=== PATIENT | female | born 2005 ===

== ENCOUNTER 2023-10-15 21:41 | Emergency (ER) | payer MEDICAID, SELFPAY ==
[2023-10-15 22:07] VITALS: BP 112/68; PULSE 91; RESP 16; TEMP 36.6; O2SAT 97; BMI 22.7
--- NOTE | 2023-10-15 23:16 | PC.NURSE ---
pt took a home preg test and it was positive, pt now wants paper work to show she is for her own personal reasons. pt gave a scant amount of urine and refusing to give more urine at this time. pt states she will be back tomorrow. pt states she cant give anymore urine at this time. teaching on drinking more water that she had in her hand and running the water in the bathroom might help. pt upset rude and left.
== END 2023-10-15 23:45 | disposition left against medical advice (07) ==
PROVIDERS: Emergency Provider Emergency Medicine
DX: Z32.01 Encounter for pregnancy test, result positive (principal)
CPT/HCPCS: 99281; 99282

== ENCOUNTER 2023-10-17 08:16 | Emergency (ER) | payer MEDICAID, SELFPAY ==
[2023-10-17 08:18] VITALS: BP 112/71; PULSE 91; RESP 18; TEMP 37.2; O2SAT 98; BMI 21.1
--- NOTE | 2023-10-17 08:42 | ED_ITS ---
HPI - General Adult General Chief complaint: General Medical Stated complaint: test Time Seen by Provider: 10/17/23 08:41 Source: patient Mode of arrival: ambulatory Limitations: no limitations History of Present Illness HPI narrative: Patient is a 18-year-old female who presents emergency department requesting proof of testing. Reports her last menstrual period 09/16/2023. 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 She also is requesting a letter for proof of to provide for her food stamps. Currently she denies nausea, vomiting, abdominal pain, vaginal bleeding, abnormal vaginal discharge, dysuria, urinary frequency/urgency/hesitancy. Related Data Previous Rx's ?Medication ?Instructions ?Recorded doxylamine succinate 25 mg tablet 25 mg PO BEDTIME PRN nausea and 10/17/23 (Unisom (doxylamine)) vomiting #20 tabs vit 168-iron 27 mg-folic 1 cap PO DAILY #30 caps 10/17/23 acid 800 mcg-omega3 235 mg capsule (One-A-Day -1) pyridoxine (vitamin B6) 25 mg 25 mg PO TID #30 tabs 10/17/23 tablet Allergies Allergy/AdvReac Type Severity Reaction Status Date / Time No Known Allergies Allergy Verified 10/17/23 08:21 Review of Systems Review of Systems: Yes all other systems are reviewed and are negative PMFSH Past Medical History Attestation statement: The following information was validated with the patient. Source: old records reviewed Social History Social History Advance Directives: No Advance Directives Information Provided: No Do you have a plan to hurt others: No Plan Physical Exam ED Vital Signs: Vital Signs - 24 hr 10/17/23 08:18 Temperature 98.9 F Pulse Rate 91 Respiratory Rate 18 Blood Pressure 112/71 Pulse Oximetry 98 Oxygen Delivery Method Room Air BMI result Body Mass Index 21.1 Appearance: Alert.?Oriented to person, place and time. No acute distress.?Normal affect. Eyes: Pupils equal, round and reactive to light.? ENT: Pharynx normal.?? Neck: Normal inspection.? Neck supple.?? CVS: Heart sounds normal. Normal heart rate and rhythm.? Pulses normal.?? Respiratory: No respiratory distress.? Lung sounds clear to auscultation bilaterally?? Abdomen: Soft and non-tender. Normoactive bowel sounds. ? Skin: Skin warm and dry.? Normal skin color.? Extremities: No lower extremity edema.? Neuro: Moves all extremities spontaneously. Sensation intact bilaterally. Ambulates with normal steady gait. Medical Decision Making Medical Decision Making [facility] Narrative: Patient is a 18-year-old female G3 T0 L0, who presents to the emergency department today requesting proof of as per HPI. Urine t esting today is positive. Urinalysis without evidence of infection or microscopic hematuria. Her examination is benign and she is without physical complaints at this time to suggest complications from . Suspect 1st trimester , with the approximate gestational 4 weeks, estimated due date 06/22/2024 based on her LMP. Prescription for vitamin was sent to pharmacy in addition to pyridoxine and Unisom for use as needed with nausea/vomiting. Advised outpatient follow-up with a intermission coordinator provider. Reviewed worrisome signs and symptoms that would warrant re-evaluation in the emergency department. All questions answered. Stable for discharge. Differential Diagnosis Differential Diagnoses: The differential diagnosis associated with the presentation includes (As noted above) Lab Data [facility] Lab Attestation statement: I reviewed the patient's lab results. (See narr ative above) Labs: Lab Results 10/17/23 Range/Units 08:42 Urine Color Dark Yellow Urine Appearance Clear Urine pH 6.0 (5.0-9.0) Ur Specific [place] >= 1.030 H (1.005-1.025) Urine Protein 30 (1+) H (Neg-Trace) mg/dL Urine Glucose (UA) Negative (Negative) mg/dL Urine Ketones 40 (Negative) mg/dL Urine Blood Negative (Negative) Urine Nitrite Negative (Negative) Ur Leukocyte Esterase Negative (Negative) Urine RBC 0-2 (0-2) /HPF Urine WBC 0-5 (0-5) /HPF Ur Squamous Epith Cells 0-2 (0-2) /HPF Urine Bacteria None Seen (None Seen) Hyaline Casts 3-5 (0-2) /LPF Urine Test POSITIVE H (NEGATIVE) Prescription Management I considered prescription management with: Other (See narrative above) Discharge Plan Discharge Clinical Impression: First trimester Patient Disposition: Home, Self-Care Instructions: (ED) Additional Instructions: Your test today is positive. He reported your last menstrual period to be 09/16/2023, this estimates your due date to be 06/22/2024. Please follow-up with an OBGYN for further coordination of care, testing, ultrasounds. Take vitamin daily. For nausea and vomiting you may take vitamin B6 25 mg 3 times daily and Unisom in the evening as needed Prescriptions: New pyridoxine (vitamin B6) 25 mg tablet 25 mg PO TID Qty: 30 0RF One-A-Day -1 27 mg iron- 800 mcg-235 mg capsule 1 cap PO DAILY Qty: 30 0RF Unisom (doxylamine) 25 mg tablet 25 mg PO BEDTIME PRN (Reason: nausea and vomiting) Qty: 20 0RF Referrals: Martínez Redd MD [Physician] - Print Language: Citizen Of [place]
[2023-10-17 08:52] LABS: Appearance Urine Clear; Color Urine Dark Yellow; Glucose Urine UA Negative (Negative); Leukocyte Esterase Urine Negative (Negative); Nitrite Urine Negative (Negative); Specific Gravity - Urine >= 1.030 (1.005-1.025); UMIC TRIGGER UACC YES; Urine Blood Negative (Negative); Urine Ketones 40 mg/dL (Negative); Urine Protein 30 (1+) mg/dL (Neg-Trace)
[2023-10-17 08:55] LABS: UPreg QC Valid YES; Urine Pregnancy POSITIVE (NEGATIVE)
[2023-10-17 08:56] LABS: Bacteria Urine None Seen (None Seen); RBC Urine 0-2 /HPF (0-2); Squamous Epithelial Cell Urine 0-2 /HPF (0-2); WBC Urine 0-5 /HPF (0-5)
[2023-10-17 09:28] VITALS: BP 112/71; PULSE 91; RESP 18; TEMP 37.2; O2SAT 98
== END 2023-10-17 09:28 | disposition home or self-care (01) ==
PROVIDERS: Emergency Provider Emergency Medicine
DX: Z32.01 Encounter for pregnancy test, result positive (principal)
CPT/HCPCS: 81001; 81025; 99282; 99283

== ENCOUNTER 2023-11-14 21:01 | Emergency (ER) | payer OTHER, SELFPAY ==
--- NOTE | ~2023-11-14 | US_ITS ---
EXAMINATION: US PELVIS CLINICAL INFORMATION: Spotting, history of 2 miscarriages COMPARISON: None TECHNIQUE: Transabdominal ultrasound of the pelvis was performed. In order to better evaluate the uterus and adnexa, transvaginal ultrasound was also employed. FINDINGS: Uterus is anteverted. No myometrial lesions. An intrauterine gestational sac is identified. A gestational sac and pole are identified. The crown-rump length measures 1.79 cm, corresponding to estimated gestational age of 8 weeks 2 days. cardiac activity is registered at 174 beats per minute. The estimated date of delivery is 06/23/2024. The right ovary measures 2.9 x 1.6 x 1.3 cm. The left ovary measures 3.6 x 1.7 x 1.8 cm. With a corpus luteal cyst. No solid extraovarian adnexal mass is identified. No free pelvic fluid is identified. US/US OB <= 14 weeks fetus IMPRESSION: Single live intrauterine with average ultrasound age of 8 weeks 2 days with heart rate of 1 74 bpm. Estimated date of delivery 06/23/2024.
[2023-11-14 21:12] VITALS: BP 110/69; PULSE 94; RESP 18; TEMP 37.1; O2SAT 98; BMI 22.0
[2023-11-14 21:28] LABS: MANUAL DIFF FLAG NO
[2023-11-14 21:29] LABS: Basophils Percent Auto 0.2 % (0-2); Eosinophils Percent Auto 0.1 % (0-4); Hematocrit 39.8 % (37.0-47.0); Hemoglobin 13.9 g/dl (12.0-16.0); Imm Gran Abs Auto 0.08 X10*3/uL (0.00-0.03); Imm Gran Pct Auto 0.6 % (0.0-0.4); Lymphocytes Absolute Auto 1.6 X10*3/uL (1.2-4.9); Lymphocytes Percent Auto 11.6 % (20-40); Mean Corpuscular HGB Conc 34.9 g/dl (31.0-35.0); Mean Corpuscular Hemoglobin 29.1 pg (27.0-33.0); Mean Corpuscular Volume 83.3 fL (80.0-98.0); Mean Platelet Volume 9.4 fL (9.4-12.3); Monocytes Absolute Auto 0.8 X10*3/uL (0.1-1.2); Monocytes Percent Auto 5.8 % (2-11); Neutrophils Absolute Auto 11.3 x10*3/uL (2.0-8.3); Neutrophils Percent Auto 81.7 % (45-73); Platelet Count 316 X10*3/uL (160-400); Red Blood Count 4.78 X10*6/uL (4.20-5.50); Red Cell Distribution Width 13.1 % (11.0-16.0); White Blood Count 13.8 X10*3/uL (4.8-10.8)
[2023-11-14 21:44] VITALS: BP 97/54; PULSE 73; RESP 17; TEMP 37; O2SAT 100
[2023-11-14 21:50] LABS: Alanine Aminotransferase 9 U/L (0-31); Albumin Level 4.7 g/dL (3.5-5.0); Alkaline Phosphatase 55 U/L (39-117); Anion Gap 12 (12-20); Aspartate Amino Transferase 13 U/L (5-31); Bilirubin Total 0.8 mg/dL (0.0-1.0); Blood Urea Nitrogen 10 mg/dL (9-16); Calcium 9.3 mg/dL (8.4-10.2); Carbon Dioxide 22 mmol/L (22-29); Chloride 105 mmol/L (96-108); Creatinine Clr Calc Pharmacy 109.1; Estimated Glomerular Filt Rate > 60; Glucose Random 103 mg/dL (60-115); Lipase 17 U/L (8-78); Potassium 3.3 mmol/L (3.3-5.1); Sodium 136 mmol/L (135-145); Total Protein 7.4 g/dL (6.5-8.0)
--- NOTE | 2023-11-14 22:08 | ED_ITS ---
HPI - General Chief complaint: Nausea/Vomiting/Diarrhea Stated complaint: extreme nausea Time Seen by Provider: 11/14/23 22:01 Source: patient Mode of arrival: ambulatory Limitations: no limitations History of Present Illness ED Provider: Dr. Katherine Youssef HPI Narrative: Patient comes to the emergency room complaining of nausea and vomiting. Patient is currently A2 at approximately 8 weeks of gestational age by last menstrual period. Patient states that for the last few days, she has been continuously vomiting, states that she already had a care visit, given vitamins pills to help with the nausea but it has not helping. Also, patient states that in the last few days, she has been seen brown spotting when she was with the toilet paper after urinating. 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 Patient denies abdominal cramping or abdominal pain. Related Data Previous Rx's ?Medication ?Instructions ?Recorded doxylamine succinate 25 mg tablet 25 mg PO BEDTIME PRN nausea and 10/17/23 (Unisom (doxylamine)) vomiting #20 tabs vit 168-iron 27 mg-folic 1 cap PO DAILY #30 caps 10/17/23 acid 800 mcg-omega3 235 mg capsule (One-A-Day -1) pyridoxine (vitamin B6) 25 mg 25 mg PO TID #30 tabs 10/17/23 tablet metoclopramide HCl 5 mg tablet 5 mg PO .T.i.d. PRN nausea and 11/15/23 (Reglan) vomiting #20 tabs Allergies Allergy/AdvReac Type Severity Reaction Status Date / Time No Known Allergies Allergy Verified 11/14/23 21:14 Review of Systems 2 Review of Systems: Constitutional : No Weight loss, No Fever, No Chills, No Night Sweats, No Fatigue, No Malaise ENT/Mouth : No Hearing loss, No Ear Pain, No Nasal Congestion, No Sinus Pain, No Hoarseness, No sore throat, No Rhinorrhea, No Swallowing Difficulty Eyes: No Eye Pain, No Swelling, No Redness, No Foreign Body, No Discharge, No Vision Changes Cardiovascular : No Chest Pain, No SOB, No Dyspnea on Exertion, No Orthopnea, No Edema, No Palpitations Respiratory : No Cough, No Sputum, No Wheezing, No Smoke Exposure, No Dyspnea Gastrointestinal : Complaining of nausea and vomiting, No Diarrhea, No Constipation, No abdominal Pain, No Hematochezia, No Melena Genitourinary : Complaining of vaginal spotting at 8 weeks of gestational age, No Dysuria, No Urinary Frequency, No Hematuria, No Urinary Incontinence, No Urgency, No Flank Pain, No Urinary Flow Changes, No Hesitancy Musculoskeletal : No joint pain, No Myalgias, No Joint Swelling Skin : No Skin Lesions, No rash Neuro : No Weakness, No Numbness, No Paresthesias, No Loss of Consciousness, No Dizziness, No Headache Psych : No Anxiety/Panic, No Depression, No SI/HI/AH/VH, No Social Issues, Heme/Lymph: No Bruising, No Bleeding,No Lymphadenopathy Endocrine : No Polyuria, No Polydipsia, No Temperature Intolerance PMFSH Social History Social History Smoked in Last 30 Days: No Use of substances other than those prescribed or required for medical reasons: No Advance Directives: No Advance Directives Information Provided: No Do you have a plan to hurt others: No Plan Physical Exam 2 Vital Signs: Vital Signs: Last Vital Signs Temp 98.6 F 11/14/23 22:55 Pulse 73 11/14/23 22:55 Resp 17 11/14/23 22:55 BP 97/54 L 11/14/23 22:55 Pulse Ox 100 11/14/23 22:55 O2 Del Method Room Air 11/14/23 22:55 BMI result Body Mass Index 22.0 Const: Other: Appearance: Alert. Oriented X3. No acute distress. Eyes: Pupils equal, round and reactive to light. ENT: Pharynx normal. Neck: Normal inspection. Neck supple. No lymph nodes noted. No crepitus CVS: Normal heart rate and rhythm. Pulses normal. Normal S1 and S2 Respiratory: No respiratory distress. Breath sounds normal. No Wheezing. No rales Abdomen: Soft and nontender. No rigidity. No distention. : On pelvic exam cervix is closed, no blood or brown discharge seen at all Skin: Skin warm and dry. Normal skin color. Normal skin turgor. Extremities: No lower extremity edema. No Lacerations. No Rash Neuro: Oriented X 3. No motor deficit. No sensory deficit. Moving all extremities. No slurred speech. CN 2 through 12 grossly intact Psych: calm, cooperative, normal affect Course Course Course Narrative: -patient receiving IV fluids, IV metoclopramide -ultrasound pending Medications Administered Discontinued Medications Generic Name Dose Route Start Last Admin Trade Name Hortensia PRN Reason Stop Dose Admin Sodium Chloride 1,000 mls @ 999 mls/hr 11/14/23 22:06 11/14/23 22:52 Ns IVCONT 11/14/23 23:06 999 mls/hr .Q1H1M ONE Administration Metoclopramide HCl 10 mg 11/14/23 22:06 11/14/23 22:54 Metoclopramide Hcl 10 Mg/2 Ml Vial IVPUSH 11/14/23 22:07 10 mg ONCE ONE Administration Medical Decision Making Medical Decision Making [facility] Narrative: -my interpretation of labs, white blood cell count 13.8 secondary to , normal electrolytes, normal LFTs, hCG 57,631 -ultrasound: Single live intrauterine , heart rate 174, age by ultrasound 8 weeks 2 days -patient is blood type A positive, no indication for RhoGAM Patient has not vomited in the ED, tolerating p.o. fluids -patient has an OB Gyne consult pending next week Differential Diagnosis Differential Diagnoses: The differential diagnosis associated with the presentation includes (Hyperemesis, threatened , ectopic ) Admission/Observation Consideration of admission/observation: Escalation of care including admission/observation considered Lab Data [facility] Lab Attestation statement: I reviewed the patient's lab results. 11/14/23 21:24 11/14/23 21:24 Labs: Lab Results 11/14/23 Range/Units 21:24 WBC 13.8 H (4.8-10.8) X10*3/uL RBC 4.78 (4.20-5.50) X10*6/uL Hgb 13.9 (12.0-16.0) g/dl Hct 39.8 (37.0-47.0) % MCV 83.3 (80.0-98.0) fL MCH 29.1 (27.0-33.0) pg MCHC 34.9 (31.0-35.0) g/dl RDW 13.1 (11.0-16.0) % Plt Count 316 (160-400) X10*3/uL MPV 9.4 (9.4-12.3) fL Immature Gran % (Auto) 0.6 H (0.0-0.4) % Neut % (Auto) 81.7 H (45-73) % Lymph % (Auto) 11.6 L (20-40) % [place] % (Auto) 5.8 (2-11) % Eos % (Auto) 0.1 (0-4) % Baso % (Auto) 0.2 (0-2) % Lymph # (Auto) 1.6 (1.2-4.9) X10*3/uL [place] # (Auto) 0.8 (0.1-1.2) X10*3/uL Eos # (Auto) 0.0 (0.0-0.4) X10*3/uL Baso # (Auto) 0.0 (0.0-0.2) X10*3/uL Abs Immat Gran (auto) 0.08 H (0.00-0.03) X10*3/uL Absolute Neuts (auto) 11.3 H (2.0-8.3) x10*3/uL Absolute Nucleated RBC 0.000 (0.0-0.012) X10*3/uL Nucleated RBC % (auto) 0.0 (0.0-0.2) /100WBC Sodium 136 (135-145) mmol/L Potassium 3.3 (3.3-5.1) mmol/L Chloride 105 (96-108) mmol/L Carbon Dioxide 22 (22-29) mmol/L Anion Gap 12 (12-20) BUN 10 (9-16) mg/dL Creatinine 0.68 (0.5-1.4) mg/dL Estim Creat Clear Calc 109.1 Estimated GFR > 60 Random Glucose 103 (60-115) mg/dL Calcium 9.3 (8.4-10.2) mg/dL Total Bilirubin 0.8 (0.0-1.0) mg/dL AST 13 (5-31) U/L ALT 9 (0-31) U/L Alkaline Phosphatase 55 (39-117) U/L Total Protein 7.4 (6.5-8.0) g/dL Albumin 4.7 (3.5-5.0) g/dL Lipase 17 (8-78) U/L Beta HCG, Quant 02162 mIU/mL Blood Type A Positive Radiology Impression Discussion of test interpretation with radiology: I have reviewed the radiologist's reading. Radiologist Impression: FINDINGS: Uterus is anteverted. No myometrial lesions. An intrauterine gestational sac is identified. A gestational sac and pole are identified. The crown-rump length measures 1.79 cm, corresponding to estimated gestational age of 8 weeks 2 days. cardiac activity is registered at 174 beats per minute. The estimated date of delivery is 06/23/2024. The right ovary measures 2.9 x 1.6 x 1.3 cm. The left ovary measures 3.6 x 1.7 x 1.8 cm. With a corpus luteal cyst. No solid extraovarian adnexal mass is identified. No free pelvic fluid is identified. US/US OB <= 14 weeks fetus IMPRESSION: Single live intrauterine with average ultrasound age of 8 weeks 2 days with heart rate of 1 74 bpm. Estimated date of delivery 06/23/2024. Critical Care Time Critical Care Time Critical Care Time: Yes Total Critical Care Time: 45 Attestation: I have personally provided critical care time. Time includes review of lab data, radiology results, discussion with consultants, and monitoring for potential decompensation. Intervention performed as documented. Discharge Plan Discharge Clinical Impression: Hyperemesis, , threatened Patient Disposition: Home, Self-Care Instructions: Threatened Miscarriage (ED), Acute Nausea and Vomiting (ED) Additional Instructions: Please follow-up with your primary care physician tomorrow. If you have any worsening or new symptoms, please return to the emergency room or call 911 Prescriptions: New metoclopramide HCl [Reglan] 5 mg tablet 5 mg PO .T.i.d. PRN (Reason: nausea and vomiting) Qty: 20 0RF No Action pyridoxine (vitamin B6) 25 mg tablet 25 mg PO TID Qty: 30 0RF One-A-Day -1 27 mg iron- 800 mcg-235 mg capsule 1 cap PO DAILY Qty: 30 0RF Unisom (doxylamine) 25 mg tablet 25 mg PO BEDTIME PRN (Reason: nausea and vomiting) Qty: 20 0RF Print Language: [place]
[2023-11-14] MEDS: 0.9 % Sodium Chloride 1,000 ML 999 ML IVCONT (22:52)
[2023-11-14] MEDS: Metoclopramide HCl 10 MG/2 ML VIAL IVPUSH (22:54)
[2023-11-14 22:55] VITALS: BP 97/54; PULSE 73; RESP 17; TEMP 37; O2SAT 100
[2023-11-15 00:32] VITALS: BP 109/61; PULSE 82; RESP 18; TEMP 36.8; O2SAT 98
== END 2023-11-15 00:38 | disposition home or self-care (01) ==
PROVIDERS: Emergency Provider Emergency Medicine
DX: O20.0 Threatened abortion (principal); R11.2 Nausea with vomiting, unspecified; Z3A.08 8 weeks gestation of pregnancy; Z79.899 Other long term (current) drug therapy
CPT/HCPCS: 36415; 76801; 80053; 83690; 84702; 85025; 86900; 86901; 96374; 99284; J2765